=== PATIENT | male | born 1995 | race American Indian/Alaskan Native ===

== ENCOUNTER 2017-06-08 13:19 | Emergency (ER) | payer OTHER ==
[2017-06-08 13:51] VITALS: BP 113/77; BMI 25.8
[2017-06-08] MEDS ORDERED: ACETAMINOPHEN 325 MG TABLET (FP) PO ONE (13:51)
[2017-06-08] MEDS ORDERED: IBUPROFEN 400 MG TABLET (FP) PO ONE ×2 (15:46→15:54)
--- NOTE | 2017-06-08 15:54 | PDOC ---
History of Present Illness - General Chief Complaint: Cold Symptoms Stated Complaint: SORE THROAT Time Seen by Provider: 06/08/17 15:52 History Source: Patient - History of Present Illness Timing/Duration: reports: yesterday Severity: reports: severe Associated Symptoms: reports: fever/chills, muscle aches, nasal congestion. denies: cough, earache, facial pain, headache, sore throat, wheezing Past History - Past Medical History Allergies/Adverse Reactions: Allergies Allergy/AdvReac Type Severity Reaction Status Date / Time No Known Allergies Allergy Verified 06/08/17 13:47 Home Medications: Ambulatory Orders Oseltamivir Phosphate [Tamiflu] 75 mg PO BID #10 capsule 06/08/17 Asthma: Yes COPD: No - Suicide/Smoking/Psychosocial Hx Smoking History: Never smoked Hx Alcohol Use: No Drug/Substance Use Hx: No Substance Use Type: None Review of Systems - Review of Systems Constitutional: Yes: Chills, Fever, Malaise, Weakness HEENTM: Yes: Ear Pain Respiratory: No: Cough, Shortness of Breath Cardiac (ROS): No: Chest Pain ABD/GI: No: Diarrhea, Nausea, Vomiting *Physical Exam - Vital Signs Last Vital Signs Temp Pulse Resp BP Pulse Ox 102.4 F H 131 H 20 113/77 100 06/08/17 13:48 06/08/17 13:48 06/08/17 13:48 06/08/17 13:48 06/08/17 13:48 - Physical Exam General Appearance: Yes: Appropriately Dressed HEENT: positive: Normal ENT Inspection, Normal Voice, TMs Normal, Pharynx Normal. negative: Scleral Icterus (R), Scleral Icterus (L) Neck: positive: Supple. negative: Lymphadenopathy (R), Lymphadenopathy (L) Respiratory/Chest: positive: Lungs Clear, Normal Breath Sounds. negative: Respiratory Distress Cardiovascular: positive: S1, S2, Tachycardia Gastrointestinal/Abdominal: positive: Soft. negative: Tender Integumentary: positive: Dry, Warm Neurologic: positive: Fully Oriented, Alert, Normal Mood/Affect ED Treatment Course - Medications Given in the ED: ED Medications Discontinued Medications Generic Name Dose Route Start Last Admin Trade Name Freq PRN Reason Stop Dose Admin Acetaminophen 650 mg 06/08/17 13:51 06/08/17 13:52 Tylenol - PO 06/08/17 13:52 650 mg NOW ONE Administration Medical Decision Making - Medical Decision Making 06/08/17 16:06 22-year-old male, no significant history here with body aches with fever and possibly sore throat since yesterday. No headache, altered mental status, photophobia, neck stiffness, rash, nausea, vomiting or diarrhea. Has not taken anything for symptoms. No sick contacts or recent travel. Patient febrile and tachycardia in ED and appears uncomfortable with unremarkable exam otherwise. Antipyretic given, fluids and strep pending. 06/08/17 16:46 +flu. Rpt vitals w/ temp of 99 and HR of 112 per [facility] G[facility]ER. Dc w/ tamiflu, contact precautions given *DC/Admit/Observation/Transfer Diagnosis at time of Disposition: Influenza A - Discharge Dispostion Disposition: HOME Condition at time of disposition: Improved - Prescriptions Prescriptions: Oseltamivir Phosphate [Tamiflu] 75 mg PO BID #10 capsule - Referrals - Patient Instructions Printed Discharge Instructions: Influenza Additional Instructions: Rest, drink plenty of fluids and take medication as prescribed. If symptoms worsen, return to ER - Post Discharge Activity Forms/Work/School Notes: Back to Work
[2017-06-08 16:40] VITALS: PULSE 112; TEMP 99
== END 2017-06-08 16:47 | disposition home or self-care (01) ==
LOC: JERFT 13:19
DX: J09.X2 Influenza due to identified novel influenza A virus with other respiratory manifestations (principal)
CPT/HCPCS: 87804; 99281-25